=== PATIENT | female | born 1950 | race Caucasian/White ===

== ENCOUNTER 2021-08-08 10:18 | Outpatient (REF) | payer MEDICARE, SELFPAY ==
[2021-08-08 11:47] LABS: Binax Internal Control QC Valid; Binax Now Covid-19 Ag Positive (Negative)
== END 2021-08-08 10:19 | disposition home or self-care (01) ==
LOC: HO.LAB 10:18
PROVIDERS: Visit Provider Internal Medicine
DX: Z20.822 Contact with and (suspected) exposure to COVID-19 (principal)
CPT/HCPCS: C9803